=== PATIENT | female | born 1965 | race Caucasian/White ===

== ENCOUNTER 2017-05-30 07:41 | Day surgery (SDC) | payer OTHER ==
[2017-05-30] MEDS ORDERED: MIDAZOLAM 1 MG/ML 2 ML INJ (10:27)
[2017-05-30] MEDS ORDERED: FENTAnyl 50 MCG/ML VIAL (10:27)
[2017-05-30] MEDS ORDERED: PROPOFOL 20 ML (10:27)
== END 2017-05-30 16:03 | disposition home or self-care (01) ==
LOC: GIL 07:41
DX: Z12.11 Encounter for screening for malignant neoplasm of colon (principal); Z85.3 Personal history of malignant neoplasm of breast; D12.5 Benign neoplasm of sigmoid colon; K64.8 Other hemorrhoids
CPT/HCPCS: 45380; 88305